=== PATIENT | female | born 1930 | race Caucasian/White ===

== ENCOUNTER 2017-07-11 23:36 | Inpatient (IN) | payer OTHER, BC ==
[~2017-07-11] VITALS: Ht 160 cm; Wt 49.0 kg
[2017-07-11 23:50] LABS: HEMATOCRIT 34.7 % (36.0-46.0); HEMOGLOBIN 11.6 G/DL (11.9-15.5); MCH 28.1 PG (29.0-34.0); MCHC 33.4 G/DL (30.0-36.0); PLATELET COUNT 335 K/uL (156-360); RBC DIS.WIDTH-CV 20.4 % (11.8-14.6); RBC DIS.WIDTH-SD 63.1 % (39-53); RED BLOOD COUNT 4.13 M/uL (3.80-5.20); WHITE BLOOD COUNT 6.3 K/uL (4.1-10.2)
[2017-07-11] MEDS ORDERED: LISINOPRIL2.5 MG PO (23:52)
[2017-07-11] MEDS ORDERED: POTASSIUM CHLO20 ME1 PO (23:52)
[2017-07-11] MEDS ORDERED: LASIX40 MG PO (23:53)
[2017-07-11] MEDS ORDERED: SYNTHROID100 MCG PO (23:53)
[2017-07-11 23:59] LABS: CHLORIDE 102 mEq/L (99-109); POTASSIUM 3.8 mEq/L (3.7-5.4); SODIUM 138 mEq/L (136-147)
[2017-07-12] LABS: GLUCOSE 135 mg/dL (70-99)
[2017-07-12 00:05] LABS: UREA NITROGEN (BUN) 28 mg/dL (9-23)
[2017-07-12 00:07] LABS: GFR ESTIMATE (CALCULATED) 56 mL/min/
[2017-07-12 00:40] LABS: PTT 27.1 SEC (25-37)
[2017-07-12 01:33] LABS: HDL CHOLESTEROL 40 MG/DL (Desirable>=50); LDL CHOLESTEROL 49 mg/dL (Desirable<100); NON-HDL CHOLESTEROL 124 mg/dL (Desirable<160); TOTAL CHOLESTEROL 164 mg/dL (Desirable<200); TRIGLYCERIDES 377 MG/DL (Normal: <150)
[2017-07-12 02:00] LABS: APPEARANCE SL.HAZY ((CLEAR)); BILIRUBIN NEGATIVE; BLOOD NEGATIVE; COLOR YELLOW ((YELLOW)); GLUCOSE (STRIP) NEGATIVE; KETONES NEGATIVE; LEUKOCYTES NEGATIVE; NITRITE NEGATIVE; PROTEIN (STRIP) 100; UROBILINOGEN 0.2 MG/DL (0.2-1.0)
[2017-07-12 02:04] LABS: BACTERIA NONE SEEN /HPF; EPITHELIAL CELLS RARE /HPF; MUCUS TRACE /LPF; RED BLOOD CELLS 0-5 /HPF (0-5); UCUL ADDED? NO; WHITE BLOOD CELLS 0-5 /HPF (0-5)
[2017-07-12 02:13] LABS: SPECIFIC GRAVITY 1.084 (1.000-1.030)
[2017-07-12] MEDS ORDERED: LOPRESSOR50 MG PO (03:51)
[2017-07-12] MEDS ORDERED: CLONAZEPAM0.5 MG PO (03:53)
[2017-07-12] MEDS ORDERED: PROAIR HFA8.5 GM IH (12:18)
[2017-07-12 16:05] VITALS: BP 150/77
[2017-07-12 19:40] VITALS: BP 145/92
[2017-07-13] VITALS (8 sets, daily range): BP systolic 118–143; BP diastolic 71–86
[2017-07-14 04:11] VITALS: BP 122/79
[2017-07-14 08:31] VITALS: BP 131/80
[2017-07-14 15:05] VITALS: BP 138/74
[2017-07-14 17:50] VITALS: BP 130/87
[2017-07-14 20:06] VITALS: BP 144/81
[2017-07-15 00:15] VITALS: BP 136/87
[2017-07-15 05:42] VITALS: BP 147/74
[2017-07-15 07:57] VITALS: BP 135/78
[2017-07-15 09:23] LABS: HEMATOCRIT 34.6 % (36.0-46.0); HEMOGLOBIN 11.2 G/DL (11.9-15.5); MCH 28.3 PG (29.0-34.0); MCHC 32.4 G/DL (30.0-36.0); MCV 87.4 FL (83-99); PLATELET COUNT 250 K/uL (156-360); RBC DIS.WIDTH-CV 20.1 % (11.8-14.6); RBC DIS.WIDTH-SD 64.5 % (39-53); RED BLOOD COUNT 3.96 M/uL (3.80-5.20); WHITE BLOOD COUNT 11.3 K/uL (4.1-10.2)
[2017-07-15 09:51] LABS: CHLORIDE 105 MEQ/L (99-109); CREATININE 0.6 MG/DL (0.6-1.3); GFR ESTIMATE (CALCULATED) > 59 mL/min/; GLUCOSE 131 mg/dL (70-99); POTASSIUM 3.2 MEQ/L (3.7-5.4); SODIUM 140 MEQ/L (136-147); UREA NITROGEN (BUN) 17 mg/dL (9-23)
[2017-07-15 16:21] VITALS: BP 144/84
[2017-07-16 00:02] VITALS: BP 117/76
[2017-07-16 06:02] VITALS: BP 149/98
[2017-07-16 07:07] LABS: HEMATOCRIT 33.5 % (36.0-46.0); HEMOGLOBIN 10.8 G/DL (11.9-15.5); MCH 27.5 PG (29.0-34.0); MCHC 32.2 G/DL (30.0-36.0); MCV 85.2 FL (83-99); PLATELET COUNT 263 K/uL (156-360); RBC DIS.WIDTH-CV 19.8 % (11.8-14.6); RBC DIS.WIDTH-SD 61.1 % (39-53); RED BLOOD COUNT 3.93 M/uL (3.80-5.20); WHITE BLOOD COUNT 9.4 K/uL (4.1-10.2)
[2017-07-16 07:30] LABS: CHLORIDE 107 MEQ/L (99-109); CREATININE 0.8 MG/DL (0.6-1.3); GFR ESTIMATE (CALCULATED) > 59 mL/min/; GLUCOSE 102 mg/dL (70-99); POTASSIUM 3.7 MEQ/L (3.7-5.4); SODIUM 141 MEQ/L (136-147); UREA NITROGEN (BUN) 19 mg/dL (9-23)
[2017-07-16 15:06] LABS: MAGNESIUM 1.9 mg/dl (1.3-2.7); PHOSPHORUS 3.7 mg/dL (2.5-4.9)
[2017-07-16 16:20] VITALS: BP 140/83
[2017-07-16 22:21] VITALS: BP 123/83
[2017-07-17 00:21] VITALS: BP 109/62
[2017-07-17 08:52] VITALS: BP 145/80
[2017-07-17 09:47] LABS: HEMOGLOBIN 11.4 G/DL (11.9-15.5); MCH 27.8 PG (29.0-34.0); MCHC 32.6 G/DL (30.0-36.0); MCV 85.4 FL (83-99); PLATELET COUNT 266 K/uL (156-360); RBC DIS.WIDTH-CV 20.1 % (11.8-14.6); RBC DIS.WIDTH-SD 62.3 % (39-53); WHITE BLOOD COUNT 11.1 K/uL (4.1-10.2)
[2017-07-17 10:18] LABS: CHLORIDE 103 MEQ/L (99-109); CREATININE 0.8 MG/DL (0.6-1.3); GFR ESTIMATE (CALCULATED) > 59 mL/min/; GLUCOSE 97 mg/dL (70-99); MAGNESIUM 1.8 mg/dl (1.3-2.7); PHOSPHORUS 3.7 mg/dL (2.5-4.9); POTASSIUM 3.2 MEQ/L (3.7-5.4); SODIUM 141 MEQ/L (136-147); UREA NITROGEN (BUN) 27 mg/dL (9-23)
[2017-07-17 16:00] VITALS: BP 140/73
[2017-07-17 22:05] VITALS: BP 134/87
[2017-07-18 00:37] VITALS: BP 148/65
[2017-07-18 05:24] VITALS: BP 147/80
[2017-07-18 07:06] LABS: HEMATOCRIT 35.4 % (36.0-46.0); HEMOGLOBIN 11.8 G/DL (11.9-15.5); MCH 28.9 PG (29.0-34.0); MCHC 33.3 G/DL (30.0-36.0); MCV 86.6 FL (83-99); PLATELET COUNT 306 K/uL (156-360); RBC DIS.WIDTH-SD 63.5 % (39-53); RED BLOOD COUNT 4.09 M/uL (3.80-5.20); WHITE BLOOD COUNT 9.6 K/uL (4.1-10.2)
[2017-07-18 07:27] LABS: CHLORIDE 106 MEQ/L (99-109); CREATININE 0.7 MG/DL (0.6-1.3); GFR ESTIMATE (CALCULATED) > 59 mL/min/; PHOSPHORUS 2.7 mg/dL (2.5-4.9); POTASSIUM 3.3 MEQ/L (3.7-5.4); SODIUM 143 MEQ/L (136-147); UREA NITROGEN (BUN) 34 mg/dL (9-23)
[2017-07-18 07:29] LABS: GLUCOSE 163 mg/dL (70-99)
[2017-07-18 07:47] VITALS: BP 142/72
[2017-07-18 16:33] VITALS: BP 145/63
[2017-07-19 01:56] VITALS: BP 136/69
[2017-07-19 07:35] LABS: CHLORIDE 104 MEQ/L (99-109); CREATININE 0.6 MG/DL (0.6-1.3); GFR ESTIMATE (CALCULATED) > 59 mL/min/; POTASSIUM 3.6 MEQ/L (3.7-5.4); SODIUM 145 MEQ/L (136-147); UREA NITROGEN (BUN) 30 mg/dL (9-23)
[2017-07-19 07:36] LABS: GLUCOSE 117 mg/dL (70-99)
[2017-07-19 08:29] VITALS: BP 131/80
[2017-07-19 15:15] VITALS: BP 113/67
[2017-07-19 18:23] LABS: MAGNESIUM 2.1 mg/dl (1.3-2.7); PHOSPHORUS 2.9 mg/dL (2.5-4.9)
[2017-07-19 23:54] VITALS: BP 120/70
[2017-07-20 06:15] LABS: BASOPHIL (%) 0.4 % (0-1); EOSINOPHIL (%) 4.4 % (0-5); EOSINOPHIL COUNT 0.3 K/uL (0-0.3); HEMATOCRIT 36.4 % (36.0-46.0); HEMOGLOBIN 11.7 G/DL (11.9-15.5); IMMATURE GRANULOCYTE (%) 0.7 % (0.0-0.7); MCHC 32.1 G/DL (30.0-36.0); MCV 87.1 FL (83-99); MONOCYTE (%) 13.6 % (3-12); NEUTROPHIL (%) 66.9 % (45-76); NEUTROPHIL COUNT 4.8 K/uL (1.8-6.4); PLATELET COUNT 338 K/uL (156-360); RBC DIS.WIDTH-CV 19.7 % (11.8-14.6); RBC DIS.WIDTH-SD 62.4 % (39-53); RED BLOOD COUNT 4.18 M/uL (3.80-5.20); WHITE BLOOD COUNT 7.2 K/uL (4.1-10.2)
[2017-07-20 06:45] LABS: CHLORIDE 101 MEQ/L (99-109); CREATININE 0.6 MG/DL (0.6-1.3); GFR ESTIMATE (CALCULATED) > 59 mL/min/; GLUCOSE 133 mg/dL (70-99); MAGNESIUM 2.3 mg/dl (1.3-2.7); PHOSPHORUS 3.3 mg/dL (2.5-4.9); POTASSIUM 3.4 MEQ/L (3.7-5.4); SODIUM 142 MEQ/L (136-147); UREA NITROGEN (BUN) 33 mg/dL (9-23)
[2017-07-20 08:23] VITALS: BP 126/82
[2017-07-20 09:48] LABS: HEMOGLOBIN A1c (GLYCOHEMOGLOB) 5.9 % (Below 5.7)
[2017-07-20 16:08] VITALS: BP 123/86
[2017-07-20 22:23] VITALS: BP 135/100
[2017-07-21 00:06] VITALS: BP 110/65
[2017-07-21 07:33] VITALS: BP 97/76
[2017-07-21] MEDS ORDERED: BISAC-EVAC10 MG PR (11:32)
[2017-07-21] MEDS ORDERED: ELIQUIS2.5 MG GT (11:35)
[2017-07-21] MEDS ORDERED: LOPRESSOR50 MG GT (11:35)
[2017-07-21] MEDS ORDERED: LASIX40 MG GT (11:35)
[2017-07-21] MEDS ORDERED: TYLENOL REGULA325 MG GT (11:35)
[2017-07-21] MEDS ORDERED: ASPIRIN81 M2 GT (11:35)
[2017-07-21] MEDS ORDERED: ATORVASTATIN CA40 MG GT (11:35)
[2017-07-21] MEDS ORDERED: CLONAZEPAM0.5 MG GT (11:35)
[2017-07-21] MEDS ORDERED: PREVACID SOLUTA30 MG GT (11:35)
[2017-07-21] MEDS ORDERED: LEVOTHYROXINE100 MCG GT (11:35)
[2017-07-21] MEDS ORDERED: OMEPRAZOLE40 M1 GT (11:51)
== END 2017-07-21 15:18 | DRG 65 ==
LOC: EME → EDBD 23:36 → EME 23:36 → 5SOUTH 07-12 03:17 → EDOF 07-12 03:17 → ENRESERV 07-12 03:21 → 5SOUTH 07-12 15:55
PROVIDERS: Emergency Medicine; Hospitalist; Internal Medicine; Physician Assistant Medical
PROC: 0DH64UZ Insertion of Feeding Device into Stomach, Percutaneous Endoscopic Approach (ICD-10-PCS; principal; 2017-07-16)
DX: I63.512 Cerebral infarction due to unspecified occlusion or stenosis of left middle cerebral artery (principal); R13.12 Dysphagia, oropharyngeal phase; G81.91 Hemiplegia, unspecified affecting right dominant side; M79.7 Fibromyalgia; R56.9 Unspecified convulsions; R47.01 Aphasia; K21.9 Gastro-esophageal reflux disease without esophagitis; I48.2 Chronic atrial fibrillation; E03.9 Hypothyroidism, unspecified; J32.0 Chronic maxillary sinusitis; R29.725 NIHSS score 25; I10 Essential (primary) hypertension; R29.810 Facial weakness; I08.1 Rheumatic disorders of both mitral and tricuspid valves; I27.20 Pulmonary hypertension, unspecified; E78.5 Hyperlipidemia, unspecified; F32.9 Major depressive disorder, single episode, unspecified; G89.29 Other chronic pain; E87.6 Hypokalemia; Z79.82 Long term (current) use of aspirin
CPT/HCPCS: 43760; 70450; 70496; 70498; 70551; 71045; 74176; 74230; 80047; 80048; 80061; 81003; 82948; 83036; 83735; 84100; 85025; 85027; 85610; 85730; 92507 GN; 92523 GN; 92526 GN; 92610 GN; 93005; 93306; 93971; 97530 GP; 99281; 99284; J0690; J1644; J1815; J1940; J1953; J2270; J2405; J3480; J7030; J7050; S0028